=== PATIENT | female | born 1995 ===

== ENCOUNTER 2017-07-23 23:22 | Emergency (ER) | payer MEDICAID ==
[~2017-07-23] VITALS: Ht 162.6 cm; Wt 77.3 kg
[2017-07-23 23:37] VITALS: PULSE 95; RESP 18; O2SAT 100
--- NOTE | 2017-07-23 23:47 | ED.REPORT ---
HPI-Rash / Abscess Date of Service Jul 23, 2017 ED Provider: Sp Baron MD The pt is a 22 y/o female with a hx of eczema who presents to the ED complaining of a tender red mass on the right side of her head over the hairline , onset 2 days ago. It is draining clear liquid. She was not able to pop it successfully earlier today. Nursing Notes Stated Complaint: POSS ABSCESS Chief Complaint: Skin Rash/Abscess Nursing Notes Reviewed: Yes Allergies: Coded Allergies: Penicillins (Verified Allergy, Mild, UNKNOWN, 08/28/09) amoxicillin (Verified Allergy, Unknown, 05/03/14) Uncoded Allergies: Penicillin (Allergy, Mild, UNKNOWN, 10/06/05) No Active Prescriptions or Reported Meds General Time Seen by MD: 23:45 Chief Complaint Tender/swollen area Hx Obtained From: Patient Arrived By: Walk-in Onset Occurred: 2 days ago Symptom Duration: Since onset Location: : Head/face Quality: Painful Severity: Current: Mild Severity: Maximum: Mild Recent Healthcare: No recent doctor visit Past Medical History Past Medical History Eczema Past Surgical History none reported Smoking History Current Every Day Smoker Social History Drug Use: THC Other Social History: Good social support Ambulatory Status Independent Review of Systems Reports: tender red and draining mass over the right hairline Complete sys rev & neg: except as marked. Physical Exam Initial Vital Signs Vital Signs (First) Date Time Temp Pulse Resp B/P Pulse Ox O2 Delivery O2 Flow Rate FiO2 07/23/17 23:37 36.2 95 18 100 Initial VS: Reviewed Head / Eyes: Atraumatic, Normocephalic Neck: Supple, Non-tender, Full range of motion Respiratory: Breath sounds normal, Clear to auscultation, No respiratory distress Cardiovascular: Regular rate & rhythm, Heart sounds normal, Intact distal pulses Abdomen / GI: Soft, Non-tender, No guarding, No rebound, No distention Extremities: Vascular intact, Neuro intact, No swelling, No tenderness Neurologic: Alert, Oriented, Nonfocal General/Constitutional: Awake, Alert, No acute distress, Well appearing, Well developed, Well hydrated, Well nourished, Cooperative Skin: Atraumatic, Color NL, Warm, Dry, Intact Eczematous changes to the face. 1cm raised tender lesion to the right front scalp consistent with small cutaneous abscess. No draining observed at the present. Re-Eval/Medical Decision Re-Evaluation/Progress #1: Time of Eval: 00:02 Re-Evaluation/Progress Note: Discussed the plan to drain the mass. She understands and agrees with the plan. All questions answered. Re-Evaluation/Progress #2: Time of Eval: 00:38 Patient Status: Condition unchanged Re-Evaluation/Progress Note: The pt had initially agreed to draining the abscess but left the ED without discharge instructions. She informed the nurse that she would follow up with her PCP. Counseled Regarding: Diagnosis, Need for follow-up, When/why to return to ED Discharge & Departure Impression: Primary Impression: Abscess Disposition: Home Discharge Condition All VS Reviewed: Yes Condition: Stable Referrals: Jonathan Ceballos MD (PCP) Scribe Attestation Portions of this note were transcribed by Kia Chi. I,, personally performed the history,physical exam and medical decision-making;I reviewed and confirmed the accuracy of the information in the transcribed note. Signed by Cathy Ford. 07/23/17 copies to: Jonathan Ceballos MD, Donald L MD Jul 23, 2017 23:46 Kia Chi Jul 23, 2017 23:49
== END 2017-07-24 00:39 | disposition left against medical advice (07) ==
LOC: SED 23:22
DX: L02.811 Cutaneous abscess of head [any part, except face] (principal); F17.200 Nicotine dependence, unspecified, uncomplicated; Z88.0 Allergy status to penicillin